=== PATIENT | male | born 1970 | race African-American/Black ===

== ENCOUNTER 2018-03-10 21:01 | Emergency (ER) | payer OTHER ==
[~2018-03-10] VITALS: Ht 175.3 cm; Wt 79.5 kg
[2018-03-11 00:14] VITALS: BP 123/80
== END 2018-03-11 00:24 ==
LOC: EME 21:01 → EDBD 21:01 → EME 03-11 00:24
DX: S01.111A Laceration without foreign body of right eyelid and periocular area, initial encounter (principal); S01.81XA Laceration without foreign body of other part of head, initial encounter; W22.8XXA Striking against or struck by other objects, initial encounter; Y92.149 Unspecified place in prison as the place of occurrence of the external cause; Z23 Encounter for immunization; I10 Essential (primary) hypertension
CPT/HCPCS: 70486; 99281; 99284